=== PATIENT | female | born 1950 | race African-American/Black ===

== ENCOUNTER 2019-05-19 12:08 | Emergency (ER) | payer OTHER ==
[~2019-05-19] VITALS: Ht 162.6 cm; Wt 70.3 kg
[~2019-05-19 12:08] MED LIST: AMLODIPINE BESY10 MG PO; ASPIRIN81 MG PO; CLONIDINE1 EAC2 TD; CLOPIDOGREL75 MG PO; HYDRALAZINE HCL50 MG PO; LACTULOSE20 GM/30 M PO; LISINOPRIL20 MG PO; METFORMIN HCL500 M1 PO; METOPROLOL TAR100 MG PO; PRAVASTATIN SOD10 MG PO
[2019-05-19 13:10] LABS: BASOPHILS # (AUTO) 0.1 (0.0-0.1); BASOPHILS % 0.6 % (0.0-1.0); EOSINOPHILS # (AUTO) 0.2 (0.0-0.4); EOSINOPHILS % 2.3 % (0.0-6.0); HEMATOCRIT 40.5 % (34.2-44.1); HEMOGLOBIN 13.1 g/dL (12.0-16.0); LYMPHOCYTES # (AUTO) 3.2 (1.0-3.2); LYMPHOCYTES % 31.9 % (18.0-39.1); MEAN CORPUSCULAR HEMOGLOBIN 26.1 pg (28-32); MEAN CORPUSCULAR HGB CONC 32.3 g/dL (31-35); MEAN CORPUSCULAR VOLUME 80.7 fL (81-99); MONOCYTES # (AUTO) 0.6 (0.2-0.8); MONOCYTES % 6.4 % (4.4-11.3); NEUTROPHILS # (AUTO) 5.8 (2.1-6.9); NEUTROPHILS % 58.4 % (38.7-80.0); PLATELET COUNT 413 x10e3/uL (140-360); RED BLOOD COUNT 5.02 x10e6/uL (3.6-5.1); RED CELL DISTRIBUTION WIDTH 13.9 % (11.7-14.4)
[2019-05-19 13:21] LABS: INR 0.92; PROTHROMBIN TIME 12.9 seconds (11.9-14.5)
[2019-05-19 13:22] LABS: PARTIAL THROMBOPLASTIN TIME 27.2 seconds (23.8-35.5)
[2019-05-19 13:46] LABS: ALANINE AMINOTRANSFERASE 9 IU/L (0-55); ALBUMIN 3.3 g/dL (3.5-5.0); ALBUMIN/GLOBULIN RATIO 0.8 (0.8-2.0); ALKALINE PHOSPHATASE 52 IU/L (40-150); ANION GAP 13.4 mmol/L (8-16); BLOOD UREA NITROGEN 14 mg/dL (7-26); BUN/CREATININE RATIO 21 (6-25); CALCIUM 9.7 mg/dL (8.4-10.2); CARBON DIOXIDE 28 mmol/L (22-29); CHLORIDE 100 mmol/L (98-107); CREATINE KINASE 35 IU/L (29-168); CREATININE, SERUM 0.68 mg/dL (0.57-1.11); EST GLOMERULAR FILTRATION RATE > 60 ML/MIN (60-); GLUCOSE 129 mg/dL (74-118); POTASSIUM 3.4 mmol/L (3.5-5.1); SODIUM 138 mmol/L (136-145)
[2019-05-19 14:14] LABS: THYROID STIMULATING HORMONE 0.858 uIU/mL (0.350-4.940)
[2019-05-19 15:52] LABS: BILIRUBIN,URINE NEGATIVE (NEGATIVE); CLARITY,URINE SL CLOUDY (CLEAR); COLOR,URINE YELLOW (YELLOW); KETONES,URINE NEGATIVE (NEGATIVE); LEUKOCYTE ESTERASE ,URINE SMALL (NEGATIVE); NITRITE,URINE NEGATIVE (NEGATIVE); PROTEIN,URINE DIPSTICK 2+ (NEGATIVE); URINE UROBILINOGEN 1 mg/dL (0.2 - 1)
[2019-05-19 16:03] LABS: BACTERIA,URINE MANY /HPF
--- NOTE | 2019-05-19 17:09 | Diagnostic Imaging Report ---
History: History of goiter which was removed some years ago, states difficulty breathing x3 months, difficulty swallowing, swollen neck. Comparison studies: None Technique: Axial, coronal and sagittal images from the skull base to the thoracic inlet. Coronal and sagittal images reconstructed from the axial data. Dose modulation, iterative reconstruction, and/or weight based adjustment of the mA/kV was utilized to reduce the radiation dose to as low as reasonably achievable. Intravenous contrast: 100 cc of Omnipaque 300. Findings: Thyroid gland: Enlarged heterogeneous multinodular thyroid gland. The left thyroid gland is markedly enlarged contains multiple heterogeneous nodules and measures 8.9 x 5.4 x 6.9 cm (SI x AP x TV). A couple nodules in the left lobe inferiorly are are peripherally calcified. Dominant nodule in the left thyroid lobe which extends inferiorly to the thoracic inlet measures up to 6.6 cm. At least 2 subcentimeter hypodense nodules are present in the right thyroid lobe. Enlarged left thyroid lobe displaces the supraglottis, hypopharynx, glottis, trachea and cervical esophagus to the right of midline. The trachea is patent and only mildly narrowed at the level of the thoracic inlet. Lymph nodes: No radiographically significant adenopathy. Vessels: Patent carotid and vertebral arteries. Anatomical variant retropharyngeal course of the right carotid bulb, right internal carotid artery and left ECA branches. The left common carotid artery and left internal jugular vein are laterally displaced by the enlarged left thyroid lobe and the distal left internal jugular vein is mildly narrowed where it abuts the thyroid gland but its otherwise patent. Scattered atherosclerosis with mild stenosis at the left carotid bulb due to hard and soft plaque. Calcified atherosclerosis at the dural insertion of the right vertebral artery and in the intradural V4 segment of the left vertebral artery. 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 Glands (parotid and submandibular): Normal in size and symmetric. No masses. Orbits: No abnormalities. Paranasal sinuses: Clear. Temporal bones: No abnormalities. Skull base and facial bones: Intact. Cervical spine: Straightened cervical curvature. Mild multilevel cervical and thoracic disc degeneration. Moderate canal stenosis at C7-T1 due to ossified posterior longitudinal ligament. 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 Incidental findings: Small left medial occipital infarct centered above the calcarine fissure in the distal left LOGISTICS PROGRAM MANAGER territory. IMPRESSION: 1. Multinodular thyroid gland with enlarged left thyroid lobe which measures up to 8.9 cm as described and exerts regional mass effect on the upper aerodigestive tract. Trachea mildly narrowed at the thoracic inlet but otherwise patent. 2. No cervical lymphadenopathy. 3. Chronic left occipital infarct. 4. Scattered atherosclerosis with anatomical variant retropharyngeal course of the cervical carotid arteries as described. Signed by: Dr. David Bean M.D. on 05/19/2019 5:05 PM
[2019-05-19] MEDS ORDERED: SODIUM CHLORIDE 0.9% 50ML 50 ML ONE (17:58)
[2019-05-19] MEDS ORDERED: IOPAMIDOL 370 MG/ML 200 ML INFUS..BTL INJ ONE (17:58)
[2019-05-19] MEDS ORDERED: CEFTRIAXONE SOD 1 GM/NS 50 ML 50 ML IV SCH (18:00)
--- NOTE | 2019-05-19 18:26 | Diagnostic Imaging Report ---
A single frontal view of the chest. HISTORY: Trouble breathing, shortness of breath COMPARISON: CT of the neck May 19, 2019. DISCUSSION: Portable technique, limits sensitivity of the exam. Soft tissue attenuation partially limits sensitivity of the exam. Tubes/Lines: None Lungs and pleura: Mild prominence of the peribronchial interstitial markings. No evidence of a consolidative pneumonia or pulmonary alveolar edema. No definite pleural effusion or pneumothorax is identified. Heart and mediastinum: The upper mediastinum appear(s) prominent, compatible with the multinodular and enlarged thyroid seen on the comparison CT of the neck.. Bones and soft tissues: Appear unremarkable, given this limited exam. IMPRESSION: 1. Findings which can be seen in the setting of a mild nonspecific bronchitis. 2. No consolidative pneumonia. 3. Refer to the CT of the neck from the same date regarding the thyroid. Signed by: Dr. Malik Hernandez D.O., M.M.M. on 05/19/2019 6:23 PM
--- NOTE | 2019-05-19 19:10 | NUR ---
WAS WRITTEN TO ADMIT X 1.5 HRS, THEN JONNA AT 1900 TO D/C SINCE PT HAS APPT TOMORROW WITH ENDOCRINE
== END 2019-05-19 19:22 | disposition home or self-care (01) ==
LOC: ER 12:08
DX: R22.1 Localized swelling, mass and lump, neck (principal); I10 Essential (primary) hypertension; E11.9 Type 2 diabetes mellitus without complications; E78.5 Hyperlipidemia, unspecified
CPT/HCPCS: 36415; 70491; 71045; 80053; 81001; 82550; 82553; 84436; 84443; 84484; 85025; 85610; 85730; 87086; 87186; 99284; J0696; Q9967

== ENCOUNTER 2019-06-20 09:27 | Inpatient (IN) | payer MEDICARE, OTHER ==
[~2019-06-20] VITALS: Ht 160 cm; Wt 70.3 kg
[2019-06-20] MEDS: INSULIN LISPRO 100 UNIT/1 ML 3ML VIAL SQ SCH ×3 (08:40→21:00)
--- OUTSIDE RECORDS SUMMARY | 2019-06-20 09:31 | XMS REPORT | Summary of Care ---
Author Author BILL GARCÍA M.D. Organization Unknown Address [facility] Phone Unavailable Care Team Providers Care Registered Nurse Float Pool Name Role Phone BILL GARCÍA M.D. Unavailable Unavailable Charli Murcia MD Unavailable Unavailable Bill García MD Unavailable Unavailable Unavailable Unavailable Functional Status Name Dates Details Functional status health issues are not documented Status: Name Dates Details Cognitive status health issues are not documented Status: Problems Name Dates Details Thyroid goiter (240.9, E04.9) Status: Active H/O partial thyroidectomy (V15.29, Z90.09) Status: Active Left thyroid nodule (241.0, E04.1) Status: Active Medications Name Dates Details metFORMIN HCl TABS Active Metoprolol Tartrate TABS * Refills: 0 Active cloNIDine HCl - 0.1 MG Oral Tablet * Refills: 0 Active HydrALAZINE-HCTZ CAPS * Refills: 0 Active Clopidogrel Bisulfate 75 MG Oral Tablet * Refills: 0 Active Aspirin TABS * Refills: 0 Active amLODIPine Besy-Benazepril HCl CAPS * Refills: 0 Active Lisinopril TABS * Refills: 0 Active Pravastatin Sodium TABS * Refills: 0 Active Allergies and Adverse Reactions Name Dates Details No Known Drug Allergies (Allergy) Status: Active Past Medical History Name Dates Details History of cerebrovascular accident (V12.54, Z86.73) Status: Resolved History of diabetes mellitus (V12.29, Z86.39) Status: Resolved History of high cholesterol (V12.29, Z86.39) Status: Resolved History of thyroid disease (V12.29, Z86.39) Status: Resolved Procedures Procedure Dates Details . [facility] - Surgical Biopsy Date: 03-Jun-2019 History of Gallbladder surgery Completed History of Tubal Ligation Completed History of Hysterectomy Completed Immunization Name Dates Details Immunizations not documented Family History Name Dates Details No pertinent family history (V49.89, Z78.9) Status: Active Social History Name Dates Details - Status: Name Dates Details Never smoker Vital Signs Date Test Result Details [id number] BP Systolic 139 mm[Hg] Status: Comments: Location: LUE; Position: Sitting BP Diastolic 81 mm[Hg] Status: Comments: Location: LUE; Position: Sitting Height 65 in Status: Weight 180 lb Status: Body Mass Index Calculated 29.95 kg/m2 Status: Body Surface Area Calculated 1.89 m2 Status: Heart Rate 65 /min Status: Results Date Description Value Details Results not documented Plan of Care Name Dates Details Planned Observations Planned Goals not documented Interventions Provided Labs/Procedures/Imaging* . [facility] - Surgical Biopsy; To Be Done: 03 Jun 2019 * Tobacco Use Screening; Done: 03 Jun 2019 Plan* -Endoscopy showed mild rightward deviation of airway, normal TVF movement * -FNA today * -Will call patient with final path results, and decide on surgery at that time * The patient confirms that consultation was verbally initiated by the specified requesting physician. Final recommendations will be communicated back to the requesting physician through the shared medical record or written communication (sent by fax or US mail) Instructions Name Dates Details Instructions not documented Encounters Appointment; BILL GARCÍA M.D. Encounter Diagnosis: Problem not documented On: 03-Jun-2019 9:45
--- OUTSIDE RECORDS SUMMARY | 2019-06-20 09:31 | XMS REPORT ---
Author Author [facility] Address Unknown Phone Unavailable Care Team Providers Care Highway Patrol Officer Name Role Phone Shasha ISAAC Unavailable Unavailable Problems This patient has no known problems. Allergies, Adverse Reactions, Alerts This patient has no known allergies or adverse reactions. Medications This patient has no known medications. Results Test Description Test Time Test Comments Text Results Atomic Results Result Comments CHEST SINGLE (PORTABLE) 2019-05-19 18:17:00 [place] [address] Patient Name: DEBBIE HIGHTOWER MR #: [id number] : 1950 Age/Sex: 68/F Req #: [id number] Adm Physician: Ordered by: TAYLOR TOWNSEND DISTRICT DIRECTOR Report #: [id number] Location: ER Room/Bed: Procedure: [id number] DX/CHEST SINGLE (PORTABLE) Exam Date: 05/19/19 Exam Time: 1744 REPORT STATUS: Signed A single frontal view of the chest. HISTORY: Trouble breathing, shortness of breath COMPARISON: CT of the neck May 19, 2019. DISCUSSION: Portable technique, limits sensitivity of the exam. Soft tissue attenuation partially limits sensitivity of the exam. Tubes/Lines: None Lungs and pleura: Mild prominence of the peribronchial interstitial markings. No evidence of a consolidative pneumonia or pulmonary alveolar edema. No definite pleural effusion or pneumothorax is identified. Heart and mediastinum: The upper mediastinum appear(s) prominent, compatible with the multinodular and enlarged thyroid seen on the comparison CT of the neck.. Bones and soft tissues: Appear unremarkable, given this limited exam. IMPRESSION: 1. Findings which can be seen in the setting of a mild nonspecific bronchitis. 2. No consolidative pneumonia. 3. Refer to the CT of the neck from the same date regarding the thyroid. Signed by: Dr. Poncho Hernandez D.O., M.M.M. on 05/19/2019 6:23 PM Dictated By: PONCHO HERNANDEZ DO 22 Transcribed By: SHASHANK on 05/19/191822 COPY TO: TAYLOR TOWNSEND NP CT SOFT TISSUE NECK W 2019-05-19 16:45:00 [place] [address] Patient Name: DEBBIE HIGHTOWER MR #: [id number] : 1950 Age/Sex: 68/F Req #: [id number] Adm Physician: Ordered by: NNEKA ISAAC MD Report #: [id number] Location: ER Room/Bed: Procedure: [id number] CT/CT SOFT TISSUE NECK W Exam Date: 05/19/19 Exam Time: 1615 REPORT STATUS: Signed History: History of goiter which was removed some years ago, states difficulty breathing x3 months, difficulty swallowing, swollen neck. Comparison studies: None Technique: Axial, coronal and sagittal images from the skull base to the thoracic inlet. Coronal and sagittal images reconstructed from the axial data. Dose modulation, iterative reconstruction, and/or weight based adjustment of the mA/kV was utilized to reduce the radiation dose to as low as reasonably achievable. Intravenous contrast: 100 cc of Omnipaque 300. Findings: Thyroid gland: Enlarged heterogeneous multinodular thyroid gland. The left thyroid gland is markedly enlarged contains multiple heterogeneous nodules and measures 8.9 x 5.4 x 6.9 cm (SI x AP x TV). A couple nodules in the left lobe inferiorly are are peripherally calcified. Dominant nodule in the left thyroid lobe which extends inferiorly to the thoracic inlet measures up to 6.6 cm. At least 2 subcentimeter hypodense nodules are present in the right thyroid lobe. Enlarged left thyroid lobe displaces the supraglottis, hypopharynx, glottis, trachea and cervical esophagus to the right of midline. The trachea is patent and only mildly narrowed at the level of the thoracic inlet. Lymph nodes: No radiographically significant adenopathy. Vessels: Patent carotid and vertebral arteries. Anatomical variant retropharyngeal course of the right carotid bulb, right internal carotid artery and left ECA branches. The left common carotid artery and left internal jugular vein are laterally displaced by the enlarged left thyroid lobe and the distal left internal jugular vein is mildly narrowed where it abuts the thyroid gland but its otherwise patent. Scattered atherosclerosis with mild stenosis at the left carotid bulb due to hard and soft plaque. Calcified atherosclerosis at the dural insertion of the right vertebral artery and in the intradural V4 segment of the left vertebral artery. 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 Glands (parotid and submandibular): Normal in size and symmetric. No masses. Orbits: No abnormalities. Paranasal sinuses: Clear. Temporal bones: No abnormalities. Skull base and facial bones: Intact. Cervical spine: Straightened cervical curvature. Mild multilevel cervical and thoracic disc degeneration. Moderate canal stenosis at C7-T1 due to ossified posterior longitudinal ligament. 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 Incidental findings: Small left medial occipital infarct centered above the calcarine fissure in the distal left ELEMENTARY EDUCATION TUTOR territory. IMPRESSION: 1. Multinodular thyroid gland with enlarged left thyroid lobe which measures up to 8.9 cm as described and exerts regional mass effect on the upper aerodigestive tract. Trachea mildly narrowed at the thoracic inlet but otherwise patent. 2. No cervical lymphadenopathy. 3. Chronic left occipital infarct. 4. Scattered atherosclerosis with anatomical variant retropharyngeal course of the cervical carotid arteries as described. Signed by: Dr. Stanton Bean M.D. on 05/19/2019 5:05 PM Dictated By: STANTON BEAN MD 04 Transcribed By: SHASHANK on 05/19/191704 COPY TO: NNEKA ISAAC MD
[2019-06-20] MEDS ORDERED: ASPIRIN 81 MG CHEW TAB PO ONE (10:00)
[2019-06-20 10:34] LABS: BASOPHILS # (AUTO) 0.1 (0.0-0.1); BASOPHILS % 0.4 % (0.0-1.0); EOSINOPHILS # (AUTO) 0.9 (0.0-0.4); EOSINOPHILS % 4.8 % (0.0-6.0); HEMOGLOBIN 11.8 g/dL (12.0-16.0); LYMPHOCYTES # (AUTO) 1.6 (1.0-3.2); MEAN CORPUSCULAR HEMOGLOBIN 25.6 pg (28-32); MEAN CORPUSCULAR HGB CONC 31.9 g/dL (31-35); MEAN CORPUSCULAR VOLUME 80.3 fL (81-99); MONOCYTES # (AUTO) 1.4 (0.2-0.8); MONOCYTES % 7.4 % (4.4-11.3); NEUTROPHILS # (AUTO) 15.1 (2.1-6.9); NEUTROPHILS % 78.3 % (38.7-80.0); PLATELET COUNT 412 x10e3/uL (140-360); RED BLOOD COUNT 4.61 x10e6/uL (3.6-5.1); RED CELL DISTRIBUTION WIDTH 13.8 % (11.7-14.4)
[2019-06-20 10:47] LABS: INR 1.09; PROTHROMBIN TIME 14.6 seconds (11.9-14.5)
[2019-06-20 10:48] LABS: PARTIAL THROMBOPLASTIN TIME 29.3 seconds (23.8-35.5)
[2019-06-20 10:55] LABS: ALANINE AMINOTRANSFERASE 16 IU/L (0-55); ALBUMIN 2.5 g/dL (3.5-5.0); ALBUMIN/GLOBULIN RATIO 0.5 (0.8-2.0); ALKALINE PHOSPHATASE 76 IU/L (40-150); ANION GAP 16.1 mmol/L (8-16); BLOOD UREA NITROGEN 10 mg/dL (7-26); BUN/CREATININE RATIO 16 (6-25); CALCIUM 8.9 mg/dL (8.4-10.2); CARBON DIOXIDE 26 mmol/L (22-29); CHLORIDE 101 mmol/L (98-107); CREATININE, SERUM 0.61 mg/dL (0.57-1.11); EST GLOMERULAR FILTRATION RATE > 60 ML/MIN (60-); GLUCOSE 168 mg/dL (74-118); MAGNESIUM 1.4 MG/DL (1.3-2.1); POTASSIUM 3.1 mmol/L (3.5-5.1); SODIUM 140 mmol/L (136-145)
[2019-06-20 10:58] LABS: CREATINE KINASE < 7 IU/L (29-168)
[2019-06-20 11:08] LABS: B-TYPE NATRIURETIC PEPTIDE2 73.4 pg/mL (0-100)
--- NOTE | 2019-06-20 11:11 | NUR ---
DIAPER SOILED WITH URINE. CHANGED DIAPER AND PAD CHANGED SHEETS
[2019-06-20 11:12] LABS: BILIRUBIN,URINE NEGATIVE (NEGATIVE); CLARITY,URINE SL CLOUDY (CLEAR); COLOR,URINE YELLOW (YELLOW); KETONES,URINE NEGATIVE (NEGATIVE); LEUKOCYTE ESTERASE ,URINE NEGATIVE (NEGATIVE); NITRITE,URINE NEGATIVE (NEGATIVE); PROTEIN,URINE DIPSTICK TRACE (NEGATIVE); URINE UROBILINOGEN 0.2 mg/dL (0.2 - 1)
[2019-06-20 11:16] LABS: BACTERIA,URINE FEW /HPF; EPITHELIAL CELLS,URINE FEW /LPF; RBC,URINE 0-5 /HPF (0-5); WBC,URINE (MAN) 0-5 /HPF (0-5)
[2019-06-20 11:28] LABS: CREATINE KINASE MB < 0.05 ng/mL (0-4.3)
--- NOTE | 2019-06-20 11:45 | NUR ---
PATIENT PLACED ON WAFFLE
--- NOTE | 2019-06-20 11:52 | Diagnostic Imaging Report ---
EXAMINATION: CHEST SINGLE (PORTABLE) INDICATION: ^CP, SOB ^[id number] ^1020 COMPARISON: 05/19/2019 FINDINGS: AP view TUBES and LINES: None. LUNGS: Lungs are well inflated. Bilateral interstitial edema. Bibasilar atelectasis, unchanged. No new consolidations. PLEURA: No pleural effusion or pneumothorax. HEART AND MEDIASTINUM: The cardiac silhouette is within normal limits. Tortuous thoracic aorta is unchanged. Possible left ventricular hypertrophy. BONES AND SOFT TISSUES: No acute osseous lesion. Soft tissues are unremarkable. UPPER ABDOMEN: No free air under the diaphragm. IMPRESSION: Bilateral interstitial edema. Signed by: Dr. Kenisha Dowling M.D. on 06/20/2019 11:49 AM
[2019-06-20] MEDS ORDERED: POTASSIUM CHLORIDE 20MEQ/15ML UDC PO ONE (12:30)
[2019-06-20] MEDS ORDERED: ENOXAPARIN INJ 80 MG/0.8 ML SYR SC ONE (12:30)
[2019-06-20] MEDS ORDERED: SODIUM CHLORIDE 0.9% 50ML 50 ML ONE (12:34)
[2019-06-20] MEDS ORDERED: IOPAMIDOL 370 MG/ML 200 ML INFUS..BTL INJ ONE (12:34)
--- NOTE | 2019-06-20 14:34 | Diagnostic Imaging Report ---
EXAM: CT Chest WITH contrast 06/20/2019 11:41 AM INDICATION: ^PE PROTOCOL COMPARISON: Chest radiograph 06/20/[address] neck 05/19/2019 TECHNIQUE: Chest was scanned utilizing a multidetector helical scanner with thin collimation from the lung apex through the level of the adrenal glands after administration of IV contrast. Coronal and sagittal reformations were obtained. IV CONTRAST: 100 mL of Isovue-370 ORAL CONTRAST: None COMPLICATIONS: None RADIATION DOSE: Total DLP: 469 mGy*cm Estimated effective dose: (DLP x 0.015 x size factor) mSv CTDIvol has been reviewed. It is below the limits set by the Radiation Protocol Committee (RPC). FINDINGS: LINES/ TUBES: None. PULMONARY ARTERIES: Linear hypodensity in the pulmonary artery branches the left upper lobe on series 2, image 44 appears to correspond to a bifurcation into subsegmental branches when compared to coronal view. Otherwise, no filling defects in the main pulmonary arteries, major branches, to the subsegmental level to suggest pulmonary embolism. The main pulmonary arteries enlarged measuring 3.5 cm in diameter. LUNGS AND AIRWAYS: Few calcifications in the peripheral right upper lobe may reflect calcified granulomas. Groundglass opacities in both lungs with septal thickening in the posterior lower lobes, a combination of interstitial edema and bibasilar atelectasis. No suspicious pulmonary nodules or masses. Rightward deviation of the upper trachea due to an enlarged thyroid gland. Otherwise there was a patent. PLEURA: Small bilateral pleural effusions. Focal pleural thickening in the peripheral right upper lobe, measuring up to 8 mm on series 2, image 59. No pneumothorax. HEART AND MEDIASTINUM: Unchanged multinodular thyroid gland. Mildly enlarged proximal right hilar lymph node measuring up to 1.7 cm on series 2, image 52 and few subcentimeter bilateral mediastinal lymph nodes of uncertain etiology but may be reactive. The heart is normal in size. There is no pericardial effusion. Diffuse coronary artery calcifications. The thoracic aorta is normal in size and associated with mildly scattered atherosclerotic calcifications. UPPER ABDOMEN: There are scattered calcified granulomas in the spleen. BONES: Multilevel degenerative changes of the thoracic spine. SOFT TISSUES: Unremarkable. IMPRESSION: 1. No pulmonary embolism. 2. Bilateral interstitial edema with associated small bilateral pleural effusions. 3. Multifocal areas of pleural thickening and reticular opacities of the lungs, mainly the lower lobes, with subsegmental atelectasis and right upper lobe calcified granuloma are suggestive of sequela of prior granulomatous disease. Recommend follow-up CT chest without contrast high resolution in 6 months to 12 months to demonstrate stability. Signed by: Dr. Kenisha Dowling M.D. on 06/20/2019 2:30 PM
--- NOTE | 2019-06-20 14:40 | NUR ---
PATIENT DIAPER FULL WITH URINE, CLEANED SKIN. CHANGED DIAPER. FAMILY AT BEDSIDE ASSISTING WITH TURNING
--- NOTE | 2019-06-20 14:40 | NUR ---
CT RESULTS JUST CAME BACK - CALL TO DR RAMOS FOR ADMIT
[2019-06-20] MEDS ORDERED: DEXTROSE 50% SYRINGE 50 ML IV PRN (14:45)
[2019-06-20] MEDS ORDERED: ONDANSETRON HCL INJ 2MG/ML 2ML 2 MG/ML VIAL IV PRN (14:45)
[2019-06-20] MEDS ORDERED: MORPHINE SULFATE 2 MG/ML SYR 1ML IV PRN (14:45)
[2019-06-20] MEDS ORDERED: POTASSIUM CHLORIDE 10MEQ/100ML 200 ML IV ONE (15:30)
[2019-06-20] MEDS ORDERED: FUROSEMIDE INJ 10 MG/ML 4 ML VIAL IV ONE (15:30)
--- NOTE | 2019-06-20 15:31 | NUR ---
REPEAT LACTIC ACID DONE 2ND SET OF CARDIAC ENZYMES COMPLETED DR. GARCIA (REGULATORY LEADER FOR [facility]) AT BEDSIDE EVALUATING PATIENT
[2019-06-20] MEDS ORDERED: LACTULOSE SYRUP 20 GM/30 ML UDC PO PRN (15:45)
[2019-06-20] MEDS: LISINOPRIL 20 MG TAB PO SCH (16:45)
[2019-06-20] MEDS: CEFEPIME 1GM/NS 0.9% 50 ML 50 ML IV SCH (17:00)
[2019-06-20] MEDS: FAMOTIDINE 20 MG/2 ML VIAL IV SCH (17:00)
[2019-06-20] MEDS ORDERED: METFORMIN HCL 500 MG TAB CR PO SCH (17:00)
[2019-06-20] MEDS: METOPROLOL TARTRATE 50 MG TAB PO SCH (17:20)
--- NOTE | 2019-06-20 17:26 | NUR ---
WENT INTO CHECK BLOOD SUGAR ON PATIENT, FAMILY HAD ALREADY FED HER. RE EDUCATED THEM FOR FUTURE MEALS TO LET NURSE CHECK BLOOD SUGAR FIRST
--- NOTE | 2019-06-20 17:46 | NUR ---
PHARMACY CALLED FOR GLUCOPHAGE XL. IT WILL BE SENT TO THE FLOOR
[2019-06-20 18:28] LABS: CREATINE KINASE 7 IU/L (29-168)
--- NOTE | 2019-06-20 18:35 | NUR ---
pt arrived to unit resp even and unlabored at this time no distress noted, pt able to make needs known , pt has family member at bedside, pt oriented to room and call light , bed in lowest position, bed rails up X 2, call light in reach. purewick placed on pt at this time.
--- NOTE | 2019-06-20 19:21 | History and Physical ---
This is a 68-year-old female patient of Dr. Denise presented to the emergency room with a complaint of shortness of breath and chest pain. HISTORY OF PRESENT ILLNESS: Ms. Rocha is a 68-year-old female patient presented to the emergency room with a complaint of shortness of breath and chest pain. The patient is saying that she has a left-sided chest pain on breathing . ALLERGIES: NO KNOWN DRUG ALLERGIES. PAST MEDICAL HISTORY: The patient has a medical history of thyroid lump. For that the patient was supposed to go for the surgery on July 01. The patient has diabetes mellitus, hypertension, and hyperlipidemia. OTHER SURGICAL HISTORY: Cholecystectomy, hysterectomy, thyroid surgery, and tubal ligation. SOCIAL HISTORY: The patient denies smoking. Denies using alcohol. PHYSICAL EXAMINATION: GENERAL: She is an elderly female patient, morbidly obese. VITAL SIGNS: Temperature 99, pulse rate 88, and blood pressure 130/80. HEENT: Normocephalic and atraumatic. NECK: SUPPLE, NO JVD . LUNGS: Bilateral equal fair air entry. No rales. No rhonchi. HEART: S1 and S2. Regular. ABDOMEN: Soft. Bowel sounds present. NEUROLOGIC: No focal neurologic deficit. LABORATORY EXAMINATION: Elevated white blood count , potassium of 3.1 and sugar of 168. The patient has a CT chest and chest x-ray was done. Chest x-ray shows no pulmonary embolism with some interstitial edema . ADMITTING IMPRESSION/DIAGNOSES: Community-acquired pneumonia with sepsis. The patient has sepsis and history of hypertension, anemia, and hypokalemia. The patient was admitted with the above diagnoses and was given IV Zithromax and started on antibiotic and Lasix, and we will obtain Pulmonary and ID consultation. MD JORGITO Burgos/AMBER /[id number] MTDJackie
[2019-06-20] MEDS ORDERED: SODIUM CHLORIDE 0.9% 250ML 250 ML ONE (19:54)
[2019-06-20 20:00] VITALS: BP 162/92
--- NOTE | 2019-06-20 20:13 | NUR ---
Report given to torri dunn Addendum: 06/20/19 at 2014 by Paulette Mckeon LVN Report given to torri watkins pt stable at this time.
[2019-06-20] MEDS: HYDRALAZINE HCL 25 MG TAB PO SCH (20:30)
[2019-06-20] MEDS: AZITHROMYCIN 500MG/NS 250 ML 250 ML IV SCH (20:30)
[2019-06-20] MEDS: PRAVASTATIN 20 MG TAB PO SCH (20:30)
[2019-06-20 20:49] LABS: CREATINE KINASE MB < 1.00 ng/mL (0-4.3)
[2019-06-20 20:56] VITALS: BP 145/94
--- NOTE | 2019-06-20 21:00 | NUR ---
Initial nursing assessment completed. Pt in room 213 via stretcher, from home. Pt pleasant. Pt alert to name, date, and diagnosis: PNA, chest pain. Denies pain or discomfort at this time. Hx CVA with right sided weakness. bed. O2 via NC @2L, sat 96%. Incontinent B/B, wears diaper and Purewick in place. Bowel sounds active x4 quads, last BM 06/20; large, brown, formed. Appetite stable, able to feed self. Sacrum redness, redness abdominal folds, abdominal folds with redness, skin irritation. Oriented to room, call paniagua within reach. Will continue to monitor.
[2019-06-20 21:12] VITALS: BP 162/92
[2019-06-21] VITALS (8 sets, daily range): BP systolic 116–176; BP diastolic 57–107
--- NOTE | 2019-06-21 00:15 | NUR ---
Patient refused 12mn blood draw after missed x3 sticks, 2 nurses. Encouraged patient to reconsider, informed patient more experienced nurse would attempt next stick. Patient refused. Call paniagua within reach.
[2019-06-21] MEDS: CEFEPIME 1GM/NS 0.9% 50 ML 50 ML IV SCH ×3 (02:45→17:30)
[2019-06-21] MEDS: FAMOTIDINE 20 MG/2 ML VIAL IV SCH ×2 (03:00→16:00)
[2019-06-21 05:35] LABS: BASOPHILS # (AUTO) 0.1 (0.0-0.1); BASOPHILS % 0.7 % (0.0-1.0); EOSINOPHILS % 6.4 % (0.0-6.0); HEMATOCRIT 38.9 % (34.2-44.1); HEMOGLOBIN 12.1 g/dL (12.0-16.0); LYMPHOCYTES # (AUTO) 2.9 (1.0-3.2); LYMPHOCYTES % 19.3 % (18.0-39.1); MEAN CORPUSCULAR HEMOGLOBIN 25.5 pg (28-32); MEAN CORPUSCULAR HGB CONC 31.1 g/dL (31-35); MEAN CORPUSCULAR VOLUME 81.9 fL (81-99); MONOCYTES # (AUTO) 1.3 (0.2-0.8); MONOCYTES % 8.6 % (4.4-11.3); NEUTROPHILS # (AUTO) 9.4 (2.1-6.9); NEUTROPHILS % 63.4 % (38.7-80.0); PLATELET COUNT 361 x10e3/uL (140-360); RED BLOOD COUNT 4.75 x10e6/uL (3.6-5.1)
[2019-06-21 05:55] LABS: ALANINE AMINOTRANSFERASE 19 IU/L (0-55); ALBUMIN 2.5 g/dL (3.5-5.0); ALBUMIN/GLOBULIN RATIO 0.5 (0.8-2.0); ALKALINE PHOSPHATASE 64 IU/L (40-150); ANION GAP 16.1 mmol/L (8-16); BLOOD UREA NITROGEN 7 mg/dL (7-26); BUN/CREATININE RATIO 12 (6-25); CALCIUM 9.2 mg/dL (8.4-10.2); CARBON DIOXIDE 25 mmol/L (22-29); CHLORIDE 101 mmol/L (98-107); CHOL/HDL RATIO 3.9 (3.0-3.6); CHOLESTEROL 104 MD/DL (0-199); CREATININE, SERUM 0.57 mg/dL (0.57-1.11); EST GLOMERULAR FILTRATION RATE > 60 ML/MIN (60-); GLUCOSE 122 mg/dL (74-118); HDL CHOLESTEROL 27 MG/DL (40-60); LDL CHOLESTEROL 50 MG/DL (60-130); POTASSIUM 4.1 mmol/L (3.5-5.1); SODIUM 138 mmol/L (136-145); TRIGLYCERIDES 136 MG/DL (0-149)
[2019-06-21 06:04] LABS: CREATINE KINASE MB < 1.00 ng/mL (0-4.3)
--- NOTE | 2019-06-21 06:14 | NUR ---
Spoke with Dr. Farias regarding consult for sepsis. Left message with Dr. Samayoa answering service for consult for PNA.
[2019-06-21 06:20] LABS: CREATINE KINASE 7 IU/L (29-168)
--- NOTE | 2019-06-21 07:00 | NUR ---
BEDSIDE SHIFT REPORT RECEIVED FROM THE TANKAGE GRINDER RN. PT DENIES NEEDS AT THIS TIME.
--- NOTE | 2019-06-21 07:30 | NUR ---
EDUCATED PT ABOUT FALL PRECAUTIONS. CALL LIGHT WITH IN EASY REACH. INSTRUCTED PT TO USE CALL LIGHT FOR ALL NEEDS. PT VERBALIZED UNDERSTANDING. BED IS LOCKED AND LOW. SIDE RAILS X2. BED ALARM IS ON. DENIES NEEDS AT THIS TIME.
[2019-06-21] MEDS ORDERED: ACETAMINOPHEN 325 MG TAB PO PRN (08:15)
[2019-06-21] MEDS: METOPROLOL TARTRATE 50 MG TAB PO SCH ×2 (08:19→17:28)
[2019-06-21] MEDS: HYDRALAZINE HCL 25 MG TAB PO SCH ×3 (08:19→20:26)
[2019-06-21] MEDS: ASPIRIN 81 MG CHEW TAB PO SCH (08:21)
[2019-06-21] MEDS: AMLODIPINE BESYLATE 10 MG TAB PO SCH (08:22)
[2019-06-21] MEDS: LISINOPRIL 20 MG TAB PO SCH ×2 (08:22→17:29)
[2019-06-21] MEDS: FUROSEMIDE INJ 10 MG/ML 4 ML VIAL IV SCH (08:23)
[2019-06-21] MEDS: AZITHROMYCIN 500MG/NS 250 ML 250 ML IV SCH (08:23)
[2019-06-21] MEDS: INSULIN LISPRO 100 UNIT/1 ML 3ML VIAL SQ SCH ×4 (08:40→20:26)
[2019-06-21] MEDS ORDERED: ASPIRIN 81 MG ENTERIC COATED PO SCH (09:00)
[2019-06-21] MEDS: NYSTATIN 15 GM POWDER UD BTL TOP SCH ×2 (10:00→17:29)
--- NOTE | 2019-06-21 10:31 | NUR ---
WOUND CARE NURSE INITIAL CONSULTATION. HEAD TO TOE SKIN ASSESSMENT PERFORMED TODAY. PT PRESENTS WITH STAGE II PRESSURE ULCERS TO SACRUM AND RIGHT BUTTOCK. YEAS PRESENT TO ABDOMINAL FOLDS. THERE ARE NO OTHER AREAS OF CONCERN NOTED AT THIS TIME. NO S/S OF INFECTION PRESENT. PT REQUIRES MAXIMUM ASSISTANCE TO REPOSITION, RIGHT SIDE HEMIPLEGIA. PT AND FAMILY AT BEDSIDE EDUCATED ON PLAN OF CARE AND PRESSURE RELIEF TO THE AFFECTED AREAS. INSTRUCTED TO REPOSITION EVERY 2 HOUR AND LIMIT CHAIR TIME AT HOME TO NO MORE THAT TWO HOURS AT A TIME. BOTH STATE UNDERSTANDING. LABS: WBC: 14.80 HGB: 12.1 ALB: 2.5 RECOMMENDATIONS: REPOSITION PT EVERY TWO HOURS AND PRN. CONTINUE WITH WAFFLE MATTRESS PROVIDE PT WITH BILATERAL HEEL PROTECTORS AND CONTINUE WITH PILLOW SUSPENSIONS. WASH ABDOMINAL FOLDS WITH SOAP AND WATER AND APPLY NYSTATIN POWDER DAILY. APPLY VENELEX OINTMENT TO SACRUM AND RIGHT BUTTOCK BID AND COVER WITH ALLEVYN FOAM. THANKS FOR THIS CONSULTATION. Addendum: 06/21/19 at 1040 by Nellie Marroquin RN Amended: Links added.
--- NOTE | 2019-06-21 12:19 | Consultation ---
DATE OF CONSULTATION: 06/21/2019 ID Consult REASON FOR CONSULTATION: Sepsis. Thank you, Dr. Wagner and Dr. Denise, for asking me to see this patient, who was admitted to the emergency department. HISTORY OF PRESENT ILLNESS: The patient is a 68-year-old woman, referred for sepsis. She presented to the emergency department with cough and pleuritic chest pain associated with shortness of breath. She denies fever or sputum production. She was evaluated by the primary care provider several days earlier and treated with oral antibiotics without improvement. In the emergency department, the patient was noted to have temperature of 99.6 degrees Fahrenheit, pulse rate 114, respiratory rate 20, blood pressure 155/83, and oxygen saturation 92% on room air. Initial laboratory studies showed blood leukocyte count of 19,260 with 78.3% neutrophils, BUN 10, creatinine 0.61, troponin less than 0.001, and blood glucose was 68. A chest CT scan with PE protocol showed no pulmonary embolism. PAST MEDICAL HISTORY: Diabetes mellitus type 2, hypertension, hyperlipidemia, and benign thyroid mass. PAST SURGICAL HISTORY: Cholecystectomy, tubal ligation, and hysterectomy. ALLERGIES: NO KNOWN DRUG ALLERGIES. MEDICATIONS: See MAR. The current antibiotics are cefepime 1 g IV piggyback q.12 hours and azithromycin 500 mg IV piggyback q.24 hours. IMMUNIZATIONS: The patient has not received influenza and pneumococcal vaccination. She stated that she does not receive vaccine. FAMILY HISTORY: Noncontributory. SOCIAL HISTORY: No alcohol or tobacco use. REVIEW OF SYSTEMS: As per history of present illness. PHYSICAL EXAMINATION: GENERAL: Mildly dyspneic, but comfortable. VITAL SIGNS: T-max 99.6, pulse rate 116, respiratory rate 23, blood pressure 176/107, and weight 155 pounds. HEENT: Normocephalic. There is no icterus or injection of conjunctivae. There is no ear or nasal discharge. Moist oral mucosa. No pharyngeal erythema or exudate. NECK: Supple. No meningismus. LUNGS: Decreased breath sounds bilaterally. HEART: With normal S1 and S2. Tachycardic. ABDOMEN: Soft and nontender. EXTREMITIES: There is no edema, clubbing, or cyanosis. SKIN: There is groin and perineal rash. IGNITION MECHANIC: Awake, alert, and oriented to person, place, and time. LABORATORY AND DIAGNOSTICS: WBC 14,800, hemoglobin 12.1, platelet 361,000, neutrophils 63.4, lymphocytes 19.3, monocytes 8.6, eosinophils 6.4, and basophils 0.4. BUN 7, creatinine 0.57, and blood glucose 197. Blood culture is pending. IMPRESSION: 1. Sepsis from pneumonia, present on admission. 2. Hypertension. PLAN: 1. Continue current antibiotics. The patient was offered influenza and pneumococcal vaccination, but she declined. 2. BP control. MD LISA Mathews/MODL /[id number]
[2019-06-21 14:02] LABS: CREATINE KINASE < 7 IU/L (29-168)
--- NOTE | 2019-06-21 14:55 | Consultation ---
DATE OF CONSULTATION: Pulmonary Consultation HISTORY OF PRESENT ILLNESS: The patient of Dr. Denise. The patient admitted with chest pain, left side, pleuritic in nature with cough. Complains of shortness of breath and weakness for three days. Denies fever and chills. Had low-grade fever in the hospital. History of thyroid mass, to be operated in approximately two weeks in [place]. History of diabetes for many years, hypertension, strokes in 2000 and 2012, dense right-sided weakness. She is cared for by her daughter. ALLERGIES: NO KNOWN ALLERGIES. MEDICATIONS: Include Plavix, clonidine, amlodipine, aspirin, Apresoline, lactulose, metformin, metoprolol, and Pravachol. SOCIAL HISTORY: She works as a business owner/engineer. Born in [place]. FAMILY HISTORY: Noncontributory. PAST SURGICAL HISTORY: She has had gallbladder surgery and hysterectomy. PHYSICAL EXAMINATION: GENERAL: She is a well-developed black female, in no acute distress. Able to communicate. VITAL SIGNS: Temperature reported is 99 today, pulse 92, respirations 18, blood pressure 134/70. HEAD: Normocephalic, atraumatic. Dense right-sided weakness. LUNGS: Few rhonchi anteriorly. HEART: Regular rhythm. ABDOMEN: Nontender. EXTREMITIES: Nonedematous. IMPRESSION: Community-acquired pneumonia with pleurisy. No evidence of pulmonary embolism or goiter. PLAN: Therapy of community-acquired pneumonia. Defer to Dr. Farias. Consider reducing anticoagulation to prophylactic levels. Chest physiotherapy. Swallowing evaluation. Thank you for this kind referral. MD JHONATAN Collins/AMBER /[id number]
--- NOTE | 2019-06-21 15:00 | NUR ---
INFORMED PT ABOUT SPUTUM CULTURE. PT IS UNABLE TO PRODUCE SPUTUM AT THIS TIME. BOTTLE AT BEDSIDE.
--- NOTE | 2019-06-21 17:00 | NUR ---
Nutrition Screen Note RD Recommendation for Physician: - Continue current diet Plan of Care: RD following, monitoring for tolerance and adequacy Nutrition reason for involvement: Nutrition Risk Trigger- MST2 Primary Diagnose(s): chest pain, PNA PMH: DM2, HTN, HLD, benign thyroid mass, cholecystectomy Ht: 63 in Wt: 155 lb BMI: 27.5kg/m2 IBW: [address] Assessment: (06/21) 68 YOF admitted for chest pain and pneumonia, seen today per MST trigger. Pt and daughters at beside pt was eating well up until 2 dyas [employer]SEM[employer], report decreased po intake and lethargy. Pt eating lunch at time of visit, reports good appetite and po intake since admit. Pt denies wt loss. Pt denies GI distress or difficulties chewing or swallowing. No questions or concerns at time of visit. Chart reviewed. Labs and meds reviewed. Will monitor and continue to follow. Current Diet: 1800 ADA Malnutrition Evaluation (06/21/19) The patient does not meet criteria for a specified degree of malnutrition at this time. Will re-evaluate at follow-up as appropriate. Diet Education Needs Assessment: Diet education not indicated. Diet tolerance: tolerating po Nutrition Care Level: low Signed: Kathleen Nugent RD, LD, CNSC
[2019-06-21] MEDS: ENOXAPARIN SOD INJ 40 MG/0.4 ML SYR SC SCH (17:29)
[2019-06-21] MEDS: BALSAM PERU/CASTOR OIL 60 GM OINT...G. TP SCH (17:29)
--- NOTE | 2019-06-21 19:00 | NUR ---
BEDSIDE SHIFT REPORT GIVEN TO THE INDUSTRY OPERATIONS INVESTIGATOR RN. PT DENIED FURTHER NEEDS.
--- NOTE | 2019-06-21 19:15 | NUR ---
RECEIVED PT RESTING IN BED WITH NO S/S OF DISTRESS.RESPIRATIONS EVEN/NON LABORED.REMINDED PT ABOUT THE NEED FOR SPUTUM SAMPLE.SPECIMEN CUP AT THE BEDSIDE.INSTRUCTED PT TO CALL FOR ASSISTANCE NEEDED.PT VERBALIZED UNDERSTANDING.BED IN LOWEST/LOCKED POSITION.CALL LIGHT WITHIN EASY REACH.
[2019-06-21] MEDS: PRAVASTATIN 20 MG TAB PO SCH (20:26)
--- NOTE | 2019-06-21 21:07 | Consultation ---
DATE OF CONSULTATION: 06/21/2019 Cardiology Consultation REQUESTING PHYSICIAN: Krystyna Denise MD REASON FOR CONSULTATION: Chest pain. HISTORY OF PRESENT ILLNESS: This is a 68-year-old woman with history of hypertension, hyperlipidemia, diabetes mellitus, who presents for evaluation of chest pain. She reports she began having chest pain on with cough and deep inspiration, described it as 7/10 in severity, but could not otherwise characterize the quality of the pain. Family indicates they noted she was more short of breath that day as well. Due to her symptoms, she presented to the ER for further evaluation. She denies any fever or chills, but does endorse sick contacts in her caregiver. She denies any edema, orthopnea, or PND. REVIEW OF SYSTEMS: Negative except as per HPI. PAST MEDICAL HISTORY: 1. Hypertension. 2. Hyperlipidemia. 3. Diabetes mellitus. PAST SURGICAL HISTORY: 1. Hysterectomy. 2. Tubal ligation. 3. Cholecystectomy. 4. Thyroid surgery. ALLERGIES: NO KNOWN DRUG ALLERGIES. MEDICATIONS: Please see medication list. SOCIAL HISTORY: Denies tobacco, alcohol, or illicit drugs. FAMILY HISTORY: Denies family history of cardiac disease. PHYSICAL EXAMINATION: VITAL SIGNS: Temperature 98.5 degrees, pulse 73, respiratory rate 24, blood pressure 129/77, oxygen saturation 98% on nasal cannula. GENERAL: A well-developed, well-nourished woman, in no acute distress. HEENT: Normocephalic, atraumatic. Pupils are equal. No scleral icterus. NECK: Supple. No thyromegaly or cervical lymphadenopathy. No carotid bruits. LUNGS: Clear to auscultation bilaterally. No wheezes or crackles. CARDIOVASCULAR: Normal rate, regular rhythm. No murmur. Normal S1, S2. ABDOMEN: Soft, nontender. EXTREMITIES: No edema. NEUROLOGIC: Nonfocal exam. LABORATORY DATA: WBC 14.8, hemoglobin 12.1, hematocrit 38.9, platelets 361. Sodium 138, potassium 4.1, chloride 101, CO2 of 25, BUN 7, creatinine 0.57. Troponin less than 0.001. Cholesterol 104, triglycerides 134, LDL 50, HDL 27. CT chest, no pulmonary embolism, bilateral interstitial edema with associated small bilateral pleural effusions. Multifocal areas of pleural thickening and reticular opacities of the lungs, mainly in the lower lobes with subsegmental atelectasis and right upper lobe calcified granuloma are suggestive of sequela of prior granulomatous disease. Recommend follow up CT chest without contrast high-resolution in 6 months to 12 months to demonstrate stability. Next, EKG, normal sinus rhythm, left axis deviation. IMPRESSION: 1. Atypical chest pain. 2. Pneumonia, community-acquired. 3. Hypertension. 4. Hyperlipidemia. 5. Diabetes mellitus. RECOMMENDATIONS: The patient is ruled out for myocardial infarction with serial cardiac biomarkers. Obtain echocardiogram. We will review the images. Continue current cardiac medications. Monitor volume status closely. Follow creatinine. Replete electrolytes. Antibiotics per Infectious Disease. Given multiple risk factors, recommend nuclear stress test as an outpatient. Thank you for this consult. We will continue to follow. Sarahi Matos MD ABS/MODL /[id number]
--- NOTE | 2019-06-21 22:27 | NUR ---
CALLED DR ABBASI TO NOTIFY PT'S BLOOD CULTURE RESULT,PROMPTED TO LEAVE MESSAGE.MESSAGE LEFT WITH CALL BACK NUMBER.
[2019-06-22] VITALS (8 sets, daily range): BP systolic 113–168; BP diastolic 73–96
[2019-06-22] MEDS: FAMOTIDINE 20 MG/2 ML VIAL IV SCH (02:30)
[2019-06-22] MEDS: CEFEPIME 1GM/NS 0.9% 50 ML 50 ML IV SCH ×3 (02:32→17:41)
[2019-06-22 05:28] LABS: BASOPHILS # (AUTO) 0.1 (0.0-0.1); BASOPHILS % 0.8 % (0.0-1.0); EOSINOPHILS # (AUTO) 0.8 (0.0-0.4); EOSINOPHILS % 4.9 % (0.0-6.0); HEMOGLOBIN 11.9 g/dL (12.0-16.0); LYMPHOCYTES # (AUTO) 3.6 (1.0-3.2); LYMPHOCYTES % 21.5 % (18.0-39.1); MEAN CORPUSCULAR HEMOGLOBIN 25.4 pg (28-32); MEAN CORPUSCULAR HGB CONC 31.3 g/dL (31-35); MEAN CORPUSCULAR VOLUME 81.2 fL (81-99); MONOCYTES # (AUTO) 1.3 (0.2-0.8); MONOCYTES % 7.6 % (4.4-11.3); NEUTROPHILS # (AUTO) 10.2 (2.1-6.9); NEUTROPHILS % 61.5 % (38.7-80.0); PLATELET COUNT 471 x10e3/uL (140-360); RED BLOOD COUNT 4.68 x10e6/uL (3.6-5.1); RED CELL DISTRIBUTION WIDTH 13.7 % (11.7-14.4)
[2019-06-22 05:44] LABS: ANION GAP 14.2 mmol/L (8-16); BLOOD UREA NITROGEN 6 mg/dL (7-26); BUN/CREATININE RATIO 10 (6-25); CALCIUM 10.1 mg/dL (8.4-10.2); CARBON DIOXIDE 29 mmol/L (22-29); CHLORIDE 98 mmol/L (98-107); CREATININE, SERUM 0.63 mg/dL (0.57-1.11); EST GLOMERULAR FILTRATION RATE > 60 ML/MIN (60-); GLUCOSE 177 mg/dL (74-118); POTASSIUM 3.2 mmol/L (3.5-5.1); SODIUM 138 mmol/L (136-145)
[2019-06-22 06:07] LABS: PLATELET ESTIMATE SLIGHTLY INCREASED; PLATELET MORPHOLOGY COMMENT FEW LARGE; RBC MORPHOLOGY COMMENT NORMAL
--- NOTE | 2019-06-22 07:00 | NUR ---
BEDSIDE SHIFT REPORT RECEIVED FROM THE PAPER SUPERVISOR RN. PT IS AAOX4. EDUCATED PT ABOUT FALL PRECAUTIONS. CALL LIGHT WITH IN EASY REACH. INSTRUCTED PT TO CALL FOR ANY NEEDS. PT VERBALIZED UNDERSTANDING. BED IS LOW AND LOCKED. SIDE RAILS X2. PT DENIES NEEDS AT THIS TIME.
--- NOTE | 2019-06-22 07:15 | NUR ---
REPORT GIVEN TO ONCOMING NURSE.WALKING ROUNDS MADE.PT RESTING IN BED WITH NO S/S OF DISTRESS.
[2019-06-22] MEDS: HYDRALAZINE HCL 25 MG TAB PO SCH ×3 (08:01→21:09)
[2019-06-22] MEDS: METOPROLOL TARTRATE 50 MG TAB PO SCH ×2 (08:02→17:41)
[2019-06-22] MEDS: LISINOPRIL 20 MG TAB PO SCH ×2 (08:06→17:41)
[2019-06-22] MEDS: ASPIRIN 81 MG CHEW TAB PO SCH (08:06)
[2019-06-22] MEDS: AMLODIPINE BESYLATE 10 MG TAB PO SCH (08:06)
[2019-06-22] MEDS: FUROSEMIDE INJ 10 MG/ML 4 ML VIAL IV SCH (08:15)
[2019-06-22] MEDS: AZITHROMYCIN 500MG/NS 250 ML 250 ML IV SCH (08:25)
[2019-06-22] MEDS: INSULIN LISPRO 100 UNIT/1 ML 3ML VIAL SQ SCH ×4 (08:30→21:09)
[2019-06-22] MEDS: BALSAM PERU/CASTOR OIL 60 GM OINT...G. TP SCH ×2 (08:31→17:41)
--- NOTE | 2019-06-22 09:00 | NUR ---
REPORTED PT K LEVEL TO DR. RAMOS
[2019-06-22] MEDS: POTASSIUM CHLORIDE 20 MEQ TAB CR PO SCH (09:45)
[2019-06-22] MEDS: NYSTATIN 15 GM POWDER UD BTL TOP SCH ×3 (09:50→17:41)
--- NOTE | 2019-06-22 13:45 | NUR ---
PAGED DR. RAMOS REGARDING SNF ORDER PER CASE MANAGEMENT.
[2019-06-22] MEDS ORDERED: ONDANSETRON HCL 4 MG ORAL DISINTEGRATING TAB PO PRN (15:30)
[2019-06-22] MEDS: FAMOTIDINE 20 MG TAB PO SCH (16:33)
--- NOTE | 2019-06-22 17:39 | Progress Note ---
DATE: 06/22/2019 Cardiology Progress Note SUBJECTIVE: The patient denies chest pain or shortness of breath. OBJECTIVE: VITAL SIGNS: Temperature 97.7 degrees, pulse 77, respiratory rate 20, blood pressure 152/83, and oxygen saturation 98% on nasal cannula. GENERAL: Awake, alert, in no acute distress. LUNGS: Clear to auscultation bilaterally. No wheezes or crackles. CARDIOVASCULAR: Normal rate, regular rhythm. No murmur. Normal S1 and S2. ABDOMEN: Soft and nontender. EXTREMITIES: No edema. CARDIAC MEDICATIONS: 1. Furosemide 40 mg IV daily. 2. Lisinopril 20 mg p.o. b.i.d. 3. Aspirin 81 mg p.o. daily. 4. Amlodipine 10 mg p.o. daily. 5. Metoprolol tartrate 100 mg p.o. b.i.d. LABORATORY DATA: WBC 16.54, hemoglobin 11.9, hematocrit 38, and platelets 471. Sodium 138, potassium 3.2, chloride 98, CO2 of 29, BUN 6, and creatinine 0.63. Blood cultures growing coagulase-negative Staph in blood cultures x2. TELEMETRY: Normal sinus rhythm. IMPRESSION: 1. Atypical chest pain. 2. Community-acquired pneumonia. 3. Hypertension. 4. Hyperlipidemia. 5. Diabetes mellitus. 6. Coagulase-negative Staphylococcus bacteremia. RECOMMENDATIONS: The patient ruled out for myocardial infarction with serial cardiac biomarkers. The patient's blood pressure is elevated, we will monitor closely, may need further antihypertensive therapy. Antibiotics per Infectious Disease. Given multiple risk factors, the patient will need ischemic evaluation as an outpatient. Echocardiogram was performed with normal LVEF and severe concentric LVH as well as impaired relaxation. Thank you for this consult. We will continue to follow. Sarahi Matos MD ABS/MODL /[id number]
[2019-06-22] MEDS: ENOXAPARIN SOD INJ 40 MG/0.4 ML SYR SC SCH (17:41)
--- NOTE | 2019-06-22 19:00 | NUR ---
BEDSIDE SHIFT REPORT GIVEN TO THE PAPER FEEDER RN. PT DENIED FURTHER NEEDS.
[2019-06-22] MEDS: PRAVASTATIN 20 MG TAB PO SCH (21:09)
[2019-06-23] VITALS (8 sets, daily range): BP systolic 123–159; BP diastolic 67–91
[2019-06-23] MEDS: CEFEPIME 1GM/NS 0.9% 50 ML 50 ML IV SCH ×3 (02:00→17:32)
--- NOTE | 2019-06-23 07:10 | NUR ---
REPORT GIVEN TO ONCOMING NURSE.WALKING ROUNDS MADE.PT RESTING IN BED WITH NO S/S OF DISTRESS.CALL LIGHT WITHIN EASY REACH.
[2019-06-23] MEDS: FAMOTIDINE 20 MG TAB PO SCH ×2 (07:30→16:30)
[2019-06-23] MEDS: INSULIN LISPRO 100 UNIT/1 ML 3ML VIAL SQ SCH ×4 (07:30→21:20)
--- NOTE | 2019-06-23 09:00 | NUR ---
The pt. is in bed awake and was admin morning med pass. She was cleaned up for malfunction of pur wick and positioned to the right side.
[2019-06-23] MEDS: ASPIRIN 81 MG CHEW TAB PO SCH (09:17)
[2019-06-23] MEDS: HYDRALAZINE HCL 25 MG TAB PO SCH ×3 (09:17→20:31)
[2019-06-23] MEDS: AZITHROMYCIN 500MG/NS 250 ML 250 ML IV SCH (09:17)
[2019-06-23] MEDS: FUROSEMIDE INJ 10 MG/ML 4 ML VIAL IV SCH (09:17)
[2019-06-23] MEDS: LISINOPRIL 20 MG TAB PO SCH ×2 (09:18→17:31)
[2019-06-23] MEDS: METOPROLOL TARTRATE 50 MG TAB PO SCH ×2 (09:18→17:31)
[2019-06-23] MEDS: AMLODIPINE BESYLATE 10 MG TAB PO SCH (09:18)
[2019-06-23] MEDS: NYSTATIN 15 GM POWDER UD BTL TOP SCH ×3 (09:18→17:32)
[2019-06-23] MEDS: POTASSIUM CHLORIDE 20 MEQ TAB CR PO SCH (09:19)
[2019-06-23] MEDS: BALSAM PERU/CASTOR OIL 60 GM OINT...G. TP SCH ×2 (09:19→17:32)
--- NOTE | 2019-06-23 15:56 | NUR ---
SPOKE WITH PATIENT ABOUT SNF ORDER GAVE CHOICES IN NETWORK. SIGNED CHOICE FOR [facility] FILED IN CHART. COMPLETED PASRR, RTF AND FAXED CLINICALS TO [phone], ATTACHED RTF TO PACKET
[2019-06-23] MEDS: ENOXAPARIN SOD INJ 40 MG/0.4 ML SYR SC SCH (17:31)
--- NOTE | 2019-06-23 19:25 | NUR ---
PATIENT RECEIVED. PATIENT IS RESTING IN BED, AAOX3. RESP EVEN AND UNLABORED. NO ACUTE DISTRESS NOTED. TELE IN PLACE. NO NEED VOIDED AT THIS TIME. FAMILY AT BED SIDE. CALL LIGHT WITHIN REACH. INSTRUCT TO CALL FOR ASSISTANCE. BED LOW/LOCKED. CONTINUE TO MONITOR CLOSELY
[2019-06-23] MEDS: PRAVASTATIN 20 MG TAB PO SCH (20:31)
[2019-06-24] VITALS (8 sets, daily range): BP systolic 151–180; BP diastolic 78–92
[2019-06-24] MEDS: CEFEPIME 1GM/NS 0.9% 50 ML 50 ML IV SCH ×3 (01:07→17:55)
--- NOTE | 2019-06-24 01:54 | Progress Note ---
DATE: 06/23/2019 Cardiology Progress Note SUBJECTIVE: The patient denies chest pain or shortness of breath. OBJECTIVE: VITAL SIGNS: Temperature 97.7 degrees, pulse 76, respiratory rate 20, blood pressure on 2 L nasal cannula. GENERAL: Awake, alert, in no acute distress. LUNGS: Clear to auscultation bilaterally. No wheezes or crackles. CARDIOVASCULAR: Normal rate, regular rhythm. No murmur. Normal S1, S2. ABDOMEN: Soft, nontender. EXTREMITIES: No edema. CARDIAC MEDICATIONS: Hydralazine 25 mg p.o. t.i.d., metoprolol tartrate 100 mg p.o. daily, lisinopril 20 mg p.o. b.i.d., amlodipine 10 mg p.o. daily, furosemide 40 mg IV daily. LABORATORY DATA: None today. TELEMETRY: Normal sinus rhythm. IMPRESSION: 1. . 2. Community-acquired pneumonia. 3. Hypertension. 4. Hyperlipidemia. 5. Diabetes mellitus. 6. Coagulase-negative Staphylococcus bacteremia. RECOMMENDATIONS: The patient is ruled out for myocardial infarction with serial cardiac biomarkers. The patient's blood pressure is for the most part controlled on current therapy. Continue to monitor. Antibiotics per Infectious Disease. Given her multiple risk factors, she will need ischemic evaluation as an outpatient. Her echocardiogram demonstrated normal LV systolic function with severe concentric LVH as well as impaired relaxation. Monitor volume status closely. Continue diuretics. Thank you for this consult. We will continue to follow. Sarahi Matos MD ABS/MODL /[id number]
[2019-06-24 05:41] LABS: BASOPHILS # (AUTO) 0.1 (0.0-0.1); BASOPHILS % 0.9 % (0.0-1.0); EOSINOPHILS # (AUTO) 0.8 (0.0-0.4); EOSINOPHILS % 5.1 % (0.0-6.0); HEMATOCRIT 37.6 % (34.2-44.1); HEMOGLOBIN 11.6 g/dL (12.0-16.0); LYMPHOCYTES # (AUTO) 4.1 (1.0-3.2); LYMPHOCYTES % 28.4 % (18.0-39.1); MEAN CORPUSCULAR HEMOGLOBIN 25.3 pg (28-32); MEAN CORPUSCULAR HGB CONC 30.9 g/dL (31-35); MEAN CORPUSCULAR VOLUME 81.9 fL (81-99); MONOCYTES # (AUTO) 1.2 (0.2-0.8); MONOCYTES % 8.2 % (4.4-11.3); NEUTROPHILS # (AUTO) 7.5 (2.1-6.9); NEUTROPHILS % 51.4 % (38.7-80.0); PLATELET COUNT 493 x10e3/uL (140-360); RED BLOOD COUNT 4.59 x10e6/uL (3.6-5.1); RED CELL DISTRIBUTION WIDTH 13.7 % (11.7-14.4)
[2019-06-24 06:13] LABS: ANION GAP 14.3 mmol/L (8-16); BLOOD UREA NITROGEN 13 mg/dL (7-26); BUN/CREATININE RATIO 19 (6-25); CALCIUM 9.6 mg/dL (8.4-10.2); CARBON DIOXIDE 27 mmol/L (22-29); CHLORIDE 98 mmol/L (98-107); CREATININE, SERUM 0.67 mg/dL (0.57-1.11); EST GLOMERULAR FILTRATION RATE > 60 ML/MIN (60-); GLUCOSE 163 mg/dL (74-118); POTASSIUM 3.3 mmol/L (3.5-5.1); SODIUM 136 mmol/L (136-145)
--- NOTE | 2019-06-24 07:10 | NUR ---
pt asleep resp even and unlabored at this time no distress noted, pt easily aroused, and able to make needs known, call light in reach.
[2019-06-24 07:22] LABS: ALBUMIN 2.7 g/dL (3.5-5.0); BILIRUBIN,DIRECT 0.1 mg/dL (0.0-0.5)
[2019-06-24] MEDS: INSULIN LISPRO 100 UNIT/1 ML 3ML VIAL SQ SCH ×4 (07:30→21:00)
[2019-06-24] MEDS ORDERED: CEFDINIR300 MG PO (08:48)
--- NOTE | 2019-06-24 09:20 | Diagnostic Imaging Report ---
EXAMINATION: CHEST SINGLE (PORTABLE) INDICATION: Shortness of breath COMPARISON: Chest CT of 06/20/2019, chest radiograph of 06/20/2019 FINDINGS: LINES/TUBES:EKG leads overlie the chest. LUNGS:The lungs are moderately inflated. There is perihilar fullness and indistinctness of the pulmonary vasculature. There is left basilar opacity silhouetting the left yimi diaphragm. PLEURA:Likely small left pleural effusion. No pneumothorax. MEDIASTINUM:The cardiomediastinal silhouette appears unchanged in size and shape. BONES/SOFT TISSUES:No acute osseous injury. ABDOMEN:No free air under the diaphragm. IMPRESSION: Mild interstitial pulmonary edema. Possible small left pleural effusion. Patchy opacity at the left lung base, likely subsegmental atelectasis. Signed by: Houston Will MD on 06/24/2019 9:17 AM
[2019-06-24] MEDS: POTASSIUM CHLORIDE 20 MEQ TAB CR PO SCH ×2 (10:02→17:00)
[2019-06-24] MEDS: ASPIRIN 81 MG CHEW TAB PO SCH (10:02)
[2019-06-24] MEDS: BALSAM PERU/CASTOR OIL 60 GM OINT...G. TP SCH ×2 (10:03→17:00)
[2019-06-24] MEDS: AMLODIPINE BESYLATE 10 MG TAB PO SCH (10:03)
[2019-06-24] MEDS: LISINOPRIL 20 MG TAB PO SCH ×2 (10:03→17:00)
[2019-06-24] MEDS: NYSTATIN 15 GM POWDER UD BTL TOP SCH ×3 (10:03→17:00)
[2019-06-24] MEDS: AZITHROMYCIN 500MG/NS 250 ML 250 ML IV SCH (10:04)
[2019-06-24] MEDS: METOPROLOL TARTRATE 50 MG TAB PO SCH ×2 (10:04→17:00)
[2019-06-24] MEDS: FUROSEMIDE INJ 10 MG/ML 4 ML VIAL IV SCH (10:04)
[2019-06-24] MEDS: HYDRALAZINE HCL 25 MG TAB PO SCH ×3 (10:04→21:33)
[2019-06-24] MEDS: FAMOTIDINE 20 MG TAB PO SCH ×2 (10:05→16:30)
--- NOTE | 2019-06-24 10:06 | NUR ---
INTERMEDIATE FACILITY DISCHARGE INFORMATION: PT HAS BEEN ACCEPTED TO: [address] [place] [address] Accepting MD: Dr. Denise Room: 202B Nurse call report to: IMM signed and placed in chart. Copy to pt. The following documents must accompany patient for transfer: copy of chart, discharge MAR Copied chart: unit manager rn RTF: completed and placed with pt's packet Out of hospital DNR: n/a AMILCAR Schneider was informed of bed assignment. Addendum: 06/24/19 at 1016 by Petrona Parikh CM VARSHA Caldwell is bedside nurse today. She was notified of bed assignment.
[2019-06-24] MEDS: ENOXAPARIN SOD INJ 40 MG/0.4 ML SYR SC SCH (17:00)
--- NOTE | 2019-06-24 19:24 | NUR ---
Bedside report given to oncoming nurse . pt stable at this time.
--- NOTE | 2019-06-24 20:35 | NUR ---
PATIENT REFUSED SUGAR CHECK. SHE SAID HER DAUGHTER WILL BRING THE NEEDLE FROM HOME
[2019-06-24] MEDS: PRAVASTATIN 20 MG TAB PO SCH (21:33)
[2019-06-25 00:31] VITALS: BP 135/67
[2019-06-25] MEDS: CEFEPIME 1GM/NS 0.9% 50 ML 50 ML IV SCH (02:32)
[2019-06-25 06:40] VITALS: BP 143/79
--- NOTE | 2019-06-25 07:00 | NUR ---
RCD PT AT BED PT IS ALERT AND ORIENTED RESTING ON BED IV PATENT BY SALINE FLUSH BED LOW AND LOCKED CALL LIGHT IN REACH
[2019-06-25] MEDS: INSULIN LISPRO 100 UNIT/1 ML 3ML VIAL SQ SCH (07:30)
[2019-06-25] MEDS: FAMOTIDINE 20 MG TAB PO SCH (07:30)
[2019-06-25 08:00] VITALS: BP 135/80
[2019-06-25 08:51] VITALS: BP 135/80
[2019-06-25] MEDS: ASPIRIN 81 MG CHEW TAB PO SCH (09:00)
[2019-06-25] MEDS: BALSAM PERU/CASTOR OIL 60 GM OINT...G. TP SCH (09:00)
[2019-06-25] MEDS ORDERED: CEFDINIR 300 MG CAP PO SCH (09:00)
[2019-06-25] MEDS ORDERED: FUROSEMIDE 40 MG TAB PO SCH (09:00)
[2019-06-25] MEDS: NYSTATIN 15 GM POWDER UD BTL TOP SCH ×2 (09:00)
[2019-06-25] MEDS: METOPROLOL TARTRATE 50 MG TAB PO SCH (09:00)
[2019-06-25] MEDS: AMLODIPINE BESYLATE 10 MG TAB PO SCH (09:00)
[2019-06-25] MEDS: POTASSIUM CHLORIDE 20 MEQ TAB CR PO SCH (09:00)
[2019-06-25] MEDS ORDERED: HYDRALAZINE HCL 25 MG TAB PO SCH (09:00)
[2019-06-25] MEDS: LISINOPRIL 20 MG TAB PO SCH (09:00)
--- NOTE | 2019-06-25 10:02 | NUR ---
REPORT GIVEN TO ELENA AND NOTIFIED AIRCRAFT ORDNANCE TECHNICIAN TO CALL AMBULANCE
--- NOTE | 2019-06-25 11:24 | NUR ---
PT DISCHARGED TO [facility] IN SAFE CONDITION
[2019-06-25 11:26] VITALS: BP 161/87
--- NOTE | 2019-06-25 22:51 | Progress Note ---
DATE: 06/25/2019 Cardiology Progress Note SUBJECTIVE: The patient denies chest pain or shortness of breath. She reports she is being discharged to [facility]. OBJECTIVE: VITAL SIGNS: Temperature 97.9 degrees, pulse 80, respiratory rate 18, blood pressure 161/87, and oxygen saturation 97% on room air. GENERAL: Awake, alert, in no acute distress. LUNGS: Clear to auscultation bilaterally. No wheezes or crackles. CARDIOVASCULAR: Normal rate, regular rhythm. No murmur. Normal S1, S2. ABDOMEN: Soft, nontender. EXTREMITIES: No edema. CARDIAC MEDICATIONS: Furosemide 40 mg p.o. daily, metoprolol tartrate 100 mg p.o. b.i.d., lisinopril 20 mg p.o. b.i.d., aspirin 81 mg p.o. daily, amlodipine 10 mg p.o. daily. LABORATORY DATA: None today. TELEMETRY: None. ASSESSMENT: 1. Atypical chest pain. 2. Community-acquired pneumonia. 3. Hypertension. 4. Hyperlipidemia. 5. Diabetes mellitus. 6. Coagulase-negative Staphylococcus bacteremia. PLAN: The patient ruled out for myocardial infarction with serial cardiac biomarkers. As she is currently chest pain free, recommend ischemic evaluation when she has recovered from her pneumonia. The patient's blood pressure is labile. Monitor response to increase in hydralazine. Antibiotics per Infectious Disease. Echocardiogram has been done with normal LV systolic function and severe concentric LVH as well as impaired relaxation. Monitor volume status closely. Continue diuretics. Thank you for this consult. We will continue to follow. Sarahi Matos MD ABS/MODL /[id number]
--- NOTE | 2019-06-28 02:47 | Progress Note ---
DATE: 06/24/2019 Cardiology Progress Note SUBJECTIVE: The patient denies chest pain or shortness of breath. OBJECTIVE: VITAL SIGNS: Temperature 97 degrees, pulse 71, respiratory rate 20, blood pressure 168/84, and oxygen saturation 96%. GENERAL: Awake, alert, in no acute distress. LUNGS: Clear to auscultation bilaterally. No wheezes or crackles. CARDIOVASCULAR: Normal rate and regular rhythm. No murmur. Normal S1 and S2. ABDOMEN: Soft and nontender. EXTREMITIES: No edema. CARDIAC MEDICATIONS: Hydralazine 75 mg p.o. t.i.d., metoprolol tartrate 100 mg p.o. b.i.d., lisinopril 20 mg p.o. b.i.d., furosemide 40 mg IV daily, and amlodipine 10 mg p.o. daily. LABORATORY DATA: WBC 14.59, hemoglobin 11.6, hematocrit 37.6, and platelets 493. Sodium 136, potassium 3.3, chloride 98, CO2 of 27, BUN 13, and creatinine 0.67. TELEMETRY: Normal sinus rhythm. IMPRESSION: 1. Atypical chest pain. 2. Community-acquired pneumonia. 3. Hypertension. 4. Hyperlipidemia. 5. Coagulase-negative staphylococci bacteremia. RECOMMENDATIONS: Antibiotics per Infectious Disease. The patient ruled out for myocardial infarction with serial cardiac biomarkers. The patient's blood pressure is not well controlled. Increase hydralazine. Given her multiple risk factors, she will need ischemic evaluation as an outpatient once she has recovered from her current illness. Her echocardiogram demonstrated normal LV systolic function with severe concentric LVH as well as impaired relaxation. Monitor volume status closely. Continue diuretics. Thank you for this. DICTATION ENDS HERE Sarahi Matos MD ABS/MODL /[id number]
== END 2019-06-25 11:24 | DRG 871 ==
LOC: ER 09:27 → ERHOLD 14:43 → MED/SURG2 18:26
PROVIDERS: ADMIT Internal Medicine; ATTEND Internal Medicine
DX: A41.9 Sepsis, unspecified organism (principal); J18.9 Pneumonia, unspecified organism; I69.351 Hemiplegia and hemiparesis following cerebral infarction affecting right dominant side; I10 Essential (primary) hypertension; D64.9 Anemia, unspecified; E87.6 Hypokalemia; R07.89 Other chest pain; E11.9 Type 2 diabetes mellitus without complications; J84.10 Pulmonary fibrosis, unspecified
CPT/HCPCS: 36415; 71045; 71260; 80048; 80053; 80061; 80076; 81001; 82550; 82553; 82948; 83605; 83735; 83880; 84484; 85025; 85379; 85610; 85730; 87040; 87071; 87086; 87186; 87205; 93005; 93306; 97139; 99285; J0456; J0692; J1650; J1940; J3480; J7050; Q9967